=== PATIENT | female | born 1970 | race African-American/Black ===

== ENCOUNTER 2019-10-31 18:44 | Emergency (ER) | payer SELFPAY ==
[~2019-10-31] VITALS: Ht 175.3 cm; Wt 100.0 kg
[2019-10-31 19:03] VITALS: BP 167/87
== END 2019-10-31 20:03 | disposition left against medical advice (07) ==
LOC: ER 18:44
DX: R10.0 Acute abdomen (principal); R11.0 Nausea; R03.0 Elevated blood-pressure reading, without diagnosis of hypertension
CPT/HCPCS: 99281

== ENCOUNTER 2022-06-07 09:08 | Inpatient (IN) | payer MEDICAID ==
[~2022-06-07] VITALS: Ht 175.3 cm; Wt 93.4 kg
[2022-06-07] MEDS ORDERED: MORPHINE SULFATE 4 MG/ML CPJ (NOT FOR IM USE) IV STA (09:27)
[2022-06-07 10:55] LABS: BASOPHILS % 1.9 % (0.0-2.0); EOSINOPHILS % 1.4 % (0.0-5.0); HEMATOCRIT. 22.4 % (36.0-48.0); LYMPHOCYTES % 15.4 % (20.0-50.0); MEAN CORPUSCULAR VOLUME 56.9 fL (81.0-99.0); MEAN PLATELET VOLUME 8.5 fl (7.4-10.4); MONOCYTES % 5.7 % (2.0-8.0); NEUTROPHILS % 75.6 % (40.0-76.0); PLATELET 383 x1000/uL (130-400); RED BLOOD CELL COUNT 3.93 mill/uL (4.2-5.4); RED CELL DISTRIBUTION WIDTH 23.2 % (11.6-14.6)
[2022-06-07 11:00] LABS: CLARITY URINE CLEAR (CLEAR); COLOR URINE YELLOW (YELLOW); KETONES URINE NEGATIVE (NEGATIVE); LEUKOCYTE ESTERASE URINE NEGATIVE (NEGATIVE); NITRITE URINE NEGATIVE (NEGATIVE); OCCULT BLOOD URINE NEGATIVE (NEGATIVE); PROTEIN URINE NEGATIVE (NEGATIVE); SPECIFIC GRAVITY URINE 1.011 (1.005-1.030); UROBILINOGEN URINE 0.2 E.U./dL (0.2-1.0)
[2022-06-07 11:05] LABS: CHLORIDE 107 mEq/L (98-107)
[2022-06-07 11:16] LABS: INR 1.1; PROTHROMBIN TIME 11.3 sec (9.6-11.0)
[2022-06-07 11:19] LABS: HEMOGLOBIN. 6.3 g/dL (12.0-16.0)
[2022-06-07 11:53] LABS: PLATELET ESTIMATE NORMAL
[2022-06-07] MEDS ORDERED: KETOROLAC 15MG/ML VIAL IV PRN (13:30)
[2022-06-07] MEDS ORDERED: CLONIDINE 0.1MG TABLET PO PRN (13:45)
[2022-06-07] MEDS ORDERED: GUAIFENESIN 200MG/10ML SUGAR FREE UDC PO PRN (13:45)
[2022-06-07] MEDS ORDERED: ACETAMINOPHEN 325MG TABLET PO PRN ×2 (13:45)
[2022-06-07] MEDS ORDERED: NITROGLYCERIN 0.4MG TABLET SL SL PRN (13:45)
[2022-06-07] MEDS ORDERED: DOCUSATE SODIUM 100MG CAPSULE PO PRN (13:45)
[2022-06-07] MEDS ORDERED: MAGNESIUM/ALUMINUM HYDROXIDE/SIMETHICONE 30ML UDC PO PRN (13:45)
[2022-06-07] MEDS ORDERED: NA PHOS,M-B/NA PHOS,DI-BA ENEMA 118ML PR PRN (13:45)
[2022-06-07] MEDS ORDERED: ONDANSETRON HCL 4MG/2ML INJ IV PRN (13:45)
[2022-06-07] MEDS ORDERED: IPRATROPIUM/ALBUTEROL 0.5-3(2.5)MG/3ML NEB NEB PRN (13:45)
[2022-06-07 14:46] LABS: ETHANOL BLOOD < 10 mg/dL; HDL CHOLESTEROL 51 mg/dL (40-59); LDL CHOLESTEROL 64 mg/dL (5-100)
[2022-06-07 15:02] LABS: VITAMIN B12 SERUM 600 pg/mL (211-911)
[2022-06-07 16:53] LABS: T4 FREE 1.31 ng/dL (0.76-1.46); TOTAL IRON BINDING CAPACITY 384 ug/dL (250-450)
[2022-06-07] MEDS ORDERED: ZOLPIDEM TARTRATE 5MG TABLET PO PRN (21:00)
[2022-06-07] MEDS: FAMOTIDINE 20MG TABLET PO SCH (21:20)
[2022-06-07 23:16] VITALS: BP 158/83
[2022-06-08] VITALS: BP 158/83
[2022-06-08 00:42] LABS: HEMATOCRIT 23.9 % (36.0-48.0)
[2022-06-08 04:00] VITALS: BP 137/83
[2022-06-08 07:01] LABS: BASOPHILS % 1.3 % (0.0-2.0); EOSINOPHILS % 1.9 % (0.0-5.0); HEMATOCRIT. 25.9 % (36.0-48.0); HEMOGLOBIN. 7.4 g/dL (12.0-16.0); LYMPHOCYTES % 27.6 % (20.0-50.0); MEAN CORPUSCULAR HEMOGLOBIN 17.3 pg (28.0-32.0); MEAN CORPUSCULAR VOLUME 60.7 fL (81.0-99.0); MEAN PLATELET VOLUME 8.6 fl (7.4-10.4); MONOCYTES % 8.4 % (2.0-8.0); NEUTROPHILS % 60.8 % (40.0-76.0); PLATELET 411 x1000/uL (130-400); RED BLOOD CELL COUNT 4.26 mill/uL (4.2-5.4)
[2022-06-08 07:50] LABS: CHLORIDE 107 mEq/L (98-107)
[2022-06-08 08:00] VITALS: BP 145/87
[2022-06-08] MEDS: FAMOTIDINE 20MG TABLET PO SCH ×2 (09:09→20:49)
[2022-06-08] MEDS ORDERED: INFLUENZA VACCINE 05/PF 0.5 ML SYRINGE IM ONE (10:00)
[2022-06-08] MEDS: IRON SUCROSE COMPLEX 100 MG/5 ML ML IV SCH (11:34)
[2022-06-08 12:00] VITALS: BP 154/89
[2022-06-08 16:00] VITALS: BP 148/87
[2022-06-08 20:00] VITALS: BP 145/91
[2022-06-09] VITALS: BP 144/72
[2022-06-09 04:00] VITALS: BP 144/74
[2022-06-09 07:41] LABS: BASOPHILS % 1.9 % (0.0-2.0); EOSINOPHILS % 5.5 % (0.0-5.0); HEMATOCRIT. 26.6 % (36.0-48.0); HEMOGLOBIN. 7.7 g/dL (12.0-16.0); LYMPHOCYTES % 33.5 % (20.0-50.0); MEAN CORPUSCULAR HEMOGLOBIN 17.5 pg (28.0-32.0); MEAN PLATELET VOLUME 8.6 fl (7.4-10.4); MONOCYTES % 8.8 % (2.0-8.0); NEUTROPHILS % 50.3 % (40.0-76.0); PLATELET 463 x1000/uL (130-400); RED BLOOD CELL COUNT 4.42 mill/uL (4.2-5.4); RED CELL DISTRIBUTION WIDTH 25.5 % (11.6-14.6)
[2022-06-09 08:00] VITALS: BP 145/92
[2022-06-09] MEDS ORDERED: FERR325T6 MT (09:33)
[2022-06-09] MEDS ORDERED: SENN-257 MT (09:33)
[2022-06-09] MEDS: FAMOTIDINE 20MG TABLET PO SCH (09:51)
[2022-06-09] MEDS: IRON SUCROSE COMPLEX 100 MG/5 ML ML IV SCH (11:33)
[2022-06-09 11:52] VITALS: BP 145/92
[2022-06-09 12:00] VITALS: BP 145/76
== END 2022-06-09 14:30 | disposition home or self-care (01) | DRG 663 ==
LOC: ER 09:08 → MICUSO 12:52 → EDBEDREQTM 12:57 → EDBEDREQ 12:57 → 7WST 06-08 00:09
PROVIDERS: ADMIT Internal Medicine; ATTEND Internal Medicine
PROC: 30233N1 Transfusion of Nonautologous Red Blood Cells into Peripheral Vein, Percutaneous Approach (ICD-10-PCS; principal; 2022-06-07)
DX: D64.9 Anemia, unspecified (principal); E44.1 Mild protein-calorie malnutrition; E83.51 Hypocalcemia; E87.1 Hypo-osmolality and hyponatremia; D25.9 Leiomyoma of uterus, unspecified; E87.6 Hypokalemia; Z68.30 Body mass index [BMI] 30.0-30.9, adult; K42.9 Umbilical hernia without obstruction or gangrene
CPT/HCPCS: 36415; 74176; 80053; 80061; 80320; 81003; 82607; 82746; 83036; 83540; 83550; 83735; 84100; 84439; 84443; 85014; 85018; 85025; 86850; 86900; 86920; 90686; 93970; 99285; J1885; J2270; P9016; G0480

== ENCOUNTER 2023-11-19 19:08 | Inpatient (IN) | payer SELFPAY ==
[~2023-11-19] VITALS: Ht 167.6 cm; Wt 79.8 kg
[~2023-11-19 19:08] MED LIST: FERR325T6 MT; SENN-257 MT
[2023-11-19] MEDS ORDERED: ONDANSETRON HCL 4MG/2ML INJ IV STA (19:21)
[2023-11-19] MEDS: SODIUM CHLORIDE 0.9% 1,000 ML IV ONE (21:00)
[2023-11-19] MEDS: ONDANSETRON HCL 4MG/2ML INJ IV NR (21:23)
[2023-11-19 22:54] LABS: BASOPHILS % 0.3 % (0.0-2.0); EOSINOPHILS % 0.1 % (0.0-5.0); HEMATOCRIT. 38.9 % (36.0-48.0); HEMOGLOBIN. 12.7 g/dL (12.0-16.0); LYMPHOCYTES % 13.1 % (20.0-50.0); MEAN CORPUSCULAR HEMOGLOBIN 26.9 pg (28.0-32.0); MEAN CORPUSCULAR HGB CONC 32.6 g/dL (31.0-37.0); MEAN CORPUSCULAR VOLUME 82.4 fL (81.0-99.0); MEAN PLATELET VOLUME 7.5 fl (7.4-10.4); NEUTROPHILS % 80.5 % (40.0-76.0); PLATELET 252 x1000/uL (130-400); RED BLOOD CELL COUNT 4.71 mill/uL (4.2-5.4); RED CELL DISTRIBUTION WIDTH 18.3 % (11.6-14.6); WHITE BLOOD COUNT 9.1 x1000/uL (4.5-11.0)
[2023-11-19] MEDS: MORPHINE SULFATE 4 MG/ML INJ (FOR IV/IM USE) IV STA (23:00)
[2023-11-19 23:38] LABS: CHLORIDE 108 mEq/L (98-107); POTASSIUM 3.5 mEq/L (3.5-5.1); SODIUM 140 mEq/L (136-145)
[2023-11-19 23:39] LABS: CARBON DIOXIDE 27 mEq/L (21-32)
[2023-11-19 23:44] LABS: CREATININE 0.7 mg/dL (0.6-1.0); GLUCOSE 114 mg/dL (70-105)
[2023-11-19 23:45] LABS: UREA NITROGEN BLOOD 11 mg/dL (9-23)
[2023-11-19 23:46] LABS: ALANINE AMINOTRANSFERASE 16 IU/L (10-49); ALBUMIN 3.6 g/dL (3.2-4.8); ASPARTATE AMINOTRANSFERASE 29 IU/L (<34)
[2023-11-19 23:47] LABS: BILIRUBIN DIRECT < 0.1 mg/dL (<=3.0); BILIRUBIN TOTAL 0.3 mg/dL (0.1-1.0); PROTEIN TOTAL 7.7 g/dL (6.0-8.3)
[2023-11-20 03:31] VITALS: BP 141/96; PULSE 71; RESP 19; TEMP 96.9
[2023-11-20 04:00] VITALS: BP 141/71; PULSE 71; RESP 19; TEMP 96.9
[2023-11-20] MEDS ORDERED: HYDROCODONE/ACETAMINOPHEN 5/325MG TABLET PO PRN (04:30)
[2023-11-20] MEDS ORDERED: NALOXONE HCL 0.4MG/ML VIAL IV PRN (04:45)
[2023-11-20 08:00] VITALS: BP 166/91; PULSE 65; RESP 18; TEMP 97.5
[2023-11-20] MEDS ORDERED: ACETAMINOPHEN 325MG TABLET PO PRN (09:30)
[2023-11-20] MEDS ORDERED: DIPHENHYDRAMINE 50MG/ML VIAL IV PRN (09:30)
[2023-11-20] MEDS ORDERED: ONDANSETRON HCL 4MG/2ML INJ IV PRN (09:30)
[2023-11-20] MEDS ORDERED: IPRATROPIUM/ALBUTEROL 0.5-3(2.5)MG/3ML NEB HHN PRN (09:30)
[2023-11-20] MEDS ORDERED: CLONIDINE 0.1MG TABLET PO PRN (10:00)
[2023-11-20 10:37] LABS: HEMATOCRIT 36.8 % (36.0-48.0); MEAN CORPUSCULAR HEMOGLOBIN 26.7 pg (28.0-32.0); MEAN CORPUSCULAR HGB CONC 32.6 g/dL (31.0-37.0); MEAN CORPUSCULAR VOLUME 81.8 fL (81.0-99.0); PLATELET 286 x1000/uL (130-400); RED CELL DISTRIBUTION WIDTH 16.8 % (11.6-14.6); WHITE BLOOD COUNT 5.7 x1000/uL (4.5-11.0)
[2023-11-20 11:08] LABS: CHLORIDE 106 mEq/L (98-107); POTASSIUM 3.4 mEq/L (3.5-5.1); SODIUM 140 mEq/L (136-145)
[2023-11-20 11:09] LABS: CALCIUM 9.6 mg/dL (8.7-10.4); CARBON DIOXIDE 27 mEq/L (21-32)
[2023-11-20 11:14] LABS: CREATININE 0.8 mg/dL (0.6-1.0); GLUCOSE 122 mg/dL (70-105); UREA NITROGEN BLOOD 10 mg/dL (9-23)
[2023-11-20 11:16] LABS: ALANINE AMINOTRANSFERASE 15 IU/L (10-49); ALBUMIN 3.6 g/dL (3.2-4.8); ASPARTATE AMINOTRANSFERASE 27 IU/L (<34); BILIRUBIN TOTAL 0.5 mg/dL (0.1-1.0); PROTEIN TOTAL 7.6 g/dL (6.0-8.3)
[2023-11-20 12:00] VITALS: BP 148/88; PULSE 81; RESP 18; TEMP 97.6
[2023-11-20 16:00] VITALS: BP 155/88; PULSE 72; RESP 18; TEMP 98.7
[2023-11-20 20:00] VITALS: BP 142/86; PULSE 71; RESP 18; TEMP 98.1
[2023-11-21 07:34] LABS: BASOPHILS % 0.4 % (0.0-2.0); EOSINOPHILS % 2.4 % (0.0-5.0); HEMATOCRIT. 35.1 % (36.0-48.0); HEMOGLOBIN. 11.3 g/dL (12.0-16.0); LYMPHOCYTES % 38.5 % (20.0-50.0); MEAN CORPUSCULAR HEMOGLOBIN 26.4 pg (28.0-32.0); MEAN CORPUSCULAR HGB CONC 32.3 g/dL (31.0-37.0); MEAN CORPUSCULAR VOLUME 81.7 fL (81.0-99.0); MEAN PLATELET VOLUME 7.7 fl (7.4-10.4); MONOCYTES % 13.3 % (2.0-8.0); NEUTROPHILS % 45.4 % (40.0-76.0); PLATELET 286 x1000/uL (130-400); RED CELL DISTRIBUTION WIDTH 16.8 % (11.6-14.6); WHITE BLOOD COUNT 4.8 x1000/uL (4.5-11.0)
[2023-11-21 07:40] LABS: CALCIUM 9.3 mg/dL (8.7-10.4); CHLORIDE 105 mEq/L (98-107); POTASSIUM 3.6 mEq/L (3.5-5.1); SODIUM 139 mEq/L (136-145)
[2023-11-21 07:41] LABS: CARBON DIOXIDE 28 mEq/L (21-32)
[2023-11-21 07:47] LABS: CREATININE 0.7 mg/dL (0.6-1.0); GLUCOSE 88 mg/dL (70-105); UREA NITROGEN BLOOD 8 mg/dL (9-23)
[2023-11-21 08:00] VITALS: BP 167/87; PULSE 74; RESP 20; TEMP 97.5
[2023-11-21 12:00] VITALS: BP 160/84; PULSE 69; RESP 19; TEMP 97.6
[2023-11-21 16:00] VITALS: BP 167/88; PULSE 64; RESP 20; TEMP 96.7
[2023-11-21] MEDS: AMLODIPINE 5MG TABLET PO SCH (16:04)
[2023-11-21 20:00] VITALS: BP 151/86; PULSE 71; RESP 20; TEMP 98.4
[2023-11-22] VITALS: BP 151/88; PULSE 65; RESP 20; TEMP 98.1
[2023-11-22 04:00] VITALS: BP 152/84; PULSE 63; RESP 20; TEMP 97.7
[2023-11-22 08:00] VITALS: BP 158/92; PULSE 66; RESP 20; TEMP 97.8
[2023-11-22] MEDS ORDERED: AMLO5TAB88 PO (12:27)
[2023-11-22 14:19] VITALS: BP 158/92; PULSE 66; TEMP 97.8; O2SAT 100
== END 2023-11-22 15:00 | disposition home or self-care (01) | DRG 254 ==
LOC: ER 19:08 → 6EST 11-20 00:54 → EDBEDREQTM 11-20 01:20 → EDBEDREQDT 11-20 01:20 → EDBEDREQ 11-20 01:20 → EDBEDREQSVC 11-20 01:20
PROVIDERS: ADMIT Internal Medicine; ATTEND Internal Medicine
DX: K42.0 Umbilical hernia with obstruction, without gangrene (principal); D25.9 Leiomyoma of uterus, unspecified; I10 Essential (primary) hypertension; I16.0 Hypertensive urgency
CPT/HCPCS: 36415; 74018; 74176; 80048; 80053; 80076; 82962; 85025; 85027; 93970; 99285; J2270; J2405; J7030

== ENCOUNTER 2023-12-20 10:17 | Inpatient (IN) | payer SELFPAY ==
[~2023-12-20] VITALS: Ht 393.7 cm; Wt 95.3 kg
[~2023-12-20 10:17] MED LIST changes: +AMLO5TAB88 PO; -FERR325T6 MT; -SENN-257 MT
[2023-12-20 10:54] LABS: BASOPHILS % 0.5 % (0.0-2.0); EOSINOPHILS % 0.1 % (0.0-5.0); HEMATOCRIT. 44.2 % (36.0-48.0); HEMOGLOBIN. 14.2 g/dL (12.0-16.0); MEAN CORPUSCULAR HEMOGLOBIN 26.1 pg (28.0-32.0); MEAN CORPUSCULAR HGB CONC 32.1 g/dL (31.0-37.0); MEAN CORPUSCULAR VOLUME 81.2 fL (81.0-99.0); MEAN PLATELET VOLUME 7.5 fl (7.4-10.4); MONOCYTES % 5.5 % (2.0-8.0); NEUTROPHILS % 77.9 % (40.0-76.0); PLATELET 327 x1000/uL (130-400); RED BLOOD CELL COUNT 5.44 mill/uL (4.2-5.4); RED CELL DISTRIBUTION WIDTH 16.7 % (11.6-14.6); WHITE BLOOD COUNT 6.8 x1000/uL (4.5-11.0)
[2023-12-20 11:03] LABS: CARBON DIOXIDE 26 mEq/L (21-32); CHLORIDE 103 mEq/L (98-107); POTASSIUM 3.7 mEq/L (3.5-5.1); SODIUM 136 mEq/L (136-145)
[2023-12-20 11:04] LABS: CALCIUM 9.4 mg/dL (8.7-10.4)
[2023-12-20 11:05] LABS: PROTHROMBIN TIME 11.4 sec (9.6-11.0)
[2023-12-20 11:08] LABS: CREATININE 0.8 mg/dL (0.6-1.0)
[2023-12-20 11:09] LABS: GLUCOSE 124 mg/dL (70-105); UREA NITROGEN BLOOD 13 mg/dL (9-23)
[2023-12-20] MEDS: ONDANSETRON HCL 4MG/2ML INJ IV STA (11:53)
[2023-12-20] MEDS: MORPHINE SULFATE 4 MG/ML INJ (FOR IV/IM USE) IV STA (11:54)
[2023-12-20] MEDS ORDERED: IOHEXOL-300 100 ML BOTTLE ONE (15:21)
[2023-12-20] MEDS: AMLODIPINE 5MG TABLET PO NR (16:15)
[2023-12-20] MEDS ORDERED: DOCUSATE SODIUM 100MG CAPSULE PO PRN (16:45)
[2023-12-20] MEDS ORDERED: CLONIDINE 0.1MG TABLET PO PRN (16:45)
[2023-12-20] MEDS ORDERED: ONDANSETRON HCL 4MG/2ML INJ IV PRN (16:45)
[2023-12-20] MEDS ORDERED: HYDROMORPHONE HCL/PF 2MG/ML CPJ IV PRN (16:45)
[2023-12-20] MEDS ORDERED: ACETAMINOPHEN 325MG TABLET PO PRN (16:45)
[2023-12-20] MEDS ORDERED: GUAIFENESIN 200MG/10ML SUGAR FREE UDC PO PRN (16:45)
[2023-12-20] MEDS: PANTOPRAZOLE SODIUM 40 MG/VIAL IV SCH (16:55)
[2023-12-20] MEDS: HYDROCODONE/ACETAMINOPHEN 5/325MG TABLET PO PRN (18:25)
[2023-12-20] MEDS: ENOXAPARIN 40MG/0.4ML SYR SUBCUT SCH (18:26)
[2023-12-20] MEDS: DEXT 5%/0.45% NACL 1000ML 1,000 ML IV SCH (18:26)
[2023-12-20 18:38] VITALS: BP 135/91; PULSE 78; RESP 18; TEMP 98.1
[2023-12-20 20:00] VITALS: BP 129/77; PULSE 69; RESP 17; TEMP 98.7
[2023-12-20] MEDS: HYDRALAZINE HCL 50MG TABLET PO SCH (22:30)
[2023-12-21] VITALS (7 sets, daily range): BP systolic 106–135; BP diastolic 55–91; PULSE 64–87; RESP 18–19; TEMP 97–98.2; O2SAT 100
[2023-12-21 06:35] LABS: BASOPHILS % 0.6 % (0.0-2.0); EOSINOPHILS % 1.4 % (0.0-5.0); HEMATOCRIT. 42.1 % (36.0-48.0); HEMOGLOBIN. 13.5 g/dL (12.0-16.0); LYMPHOCYTES % 38.3 % (20.0-50.0); MEAN CORPUSCULAR HEMOGLOBIN 26.2 pg (28.0-32.0); MEAN CORPUSCULAR VOLUME 81.8 fL (81.0-99.0); MEAN PLATELET VOLUME 7.8 fl (7.4-10.4); MONOCYTES % 9.5 % (2.0-8.0); NEUTROPHILS % 50.2 % (40.0-76.0); PLATELET 312 x1000/uL (130-400); RED BLOOD CELL COUNT 5.15 mill/uL (4.2-5.4); RED CELL DISTRIBUTION WIDTH 16.8 % (11.6-14.6); WHITE BLOOD COUNT 4.9 x1000/uL (4.5-11.0)
[2023-12-21] MEDS: AMLODIPINE 10MG TABLET PO SCH (09:11)
[2023-12-22] MEDS ORDERED: FAMOTIDINE 20MG/2ML VIAL IV SCH (09:00)
== END 2023-12-21 17:15 | disposition home or self-care (01) | DRG 254 ==
LOC: ER 10:17 → 6EST 13:48 → EDBEDREQTM 13:52 → EDBEDREQ 13:52
PROVIDERS: ADMIT Hospitalist; ATTEND Hospitalist
DX: K43.6 Other and unspecified ventral hernia with obstruction, without gangrene (principal); I10 Essential (primary) hypertension; Z79.899 Other long term (current) drug therapy
CPT/HCPCS: 36415; 74177; 80048; 80061; 83605; 85025; 99285; C9113; J1650; J2270; J2405; Q9967

== ENCOUNTER 2024-01-27 18:28 | Inpatient (IN) | payer SELFPAY ==
[~2024-01-27] VITALS: Ht 175.3 cm; Wt 93.6 kg
[2024-01-27 20:31] LABS: CALCIUM 9.6 mg/dL (8.7-10.4); CARBON DIOXIDE 25 mEq/L (21-32); CHLORIDE 108 mEq/L (98-107); POTASSIUM 3.7 mEq/L (3.5-5.1); SODIUM 139 mEq/L (136-145)
[2024-01-27] MEDS: SODIUM CHLORIDE 0.9% 1,000 ML IV ONE (20:33)
[2024-01-27 20:36] LABS: CREATININE 0.7 mg/dL (0.6-1.0); GLUCOSE 118 mg/dL (70-105)
[2024-01-27 20:37] LABS: TROPONIN I HIGH SENSITIVITY < 4 ng/L (3.0-34); UREA NITROGEN BLOOD 6 mg/dL (9-23)
[2024-01-27 20:38] LABS: ALANINE AMINOTRANSFERASE 12 IU/L (10-49); ALBUMIN 4.3 g/dL (3.2-4.8); ASPARTATE AMINOTRANSFERASE 26 IU/L (<34)
[2024-01-27 20:39] LABS: BILIRUBIN TOTAL 0.4 mg/dL (0.1-1.0); PROTEIN TOTAL 8.6 g/dL (6.0-8.3)
[2024-01-27 20:40] LABS: BASOPHILS % 0.4 % (0.0-2.0); EOSINOPHILS % 0.1 % (0.0-5.0); HEMATOCRIT. 42.7 % (36.0-48.0); HEMOGLOBIN. 13.4 g/dL (12.0-16.0); LYMPHOCYTES % 18.7 % (20.0-50.0); MEAN CORPUSCULAR HEMOGLOBIN 26.4 pg (28.0-32.0); MEAN CORPUSCULAR HGB CONC 31.3 g/dL (31.0-37.0); MEAN CORPUSCULAR VOLUME 84.4 fL (81.0-99.0); MEAN PLATELET VOLUME 8.2 fl (7.4-10.4); MONOCYTES % 4.9 % (2.0-8.0); NEUTROPHILS % 75.9 % (40.0-76.0); PLATELET 176 x1000/uL (130-400); RED BLOOD CELL COUNT 5.06 mill/uL (4.2-5.4); RED CELL DISTRIBUTION WIDTH 17.5 % (11.6-14.6); WHITE BLOOD COUNT 5.8 x1000/uL (4.5-11.0)
[2024-01-27 20:47] LABS: HCG SCREEN NEGATIVE
[2024-01-27] MEDS: ONDANSETRON HCL 4MG/2ML INJ IV STA (20:53)
[2024-01-27] MEDS: MORPHINE SULFATE 4 MG/ML INJ (FOR IV/IM USE) IV STA (20:54)
[2024-01-27] MEDS: IOHEXOL-300 100 ML BOTTLE ONE (23:31)
[2024-01-28] MEDS: HYDRALAZINE 20MG/ML VIAL IV ONE (00:23)
[2024-01-28] MEDS: CLONIDINE 0.1MG TABLET PO NR (04:53)
[2024-01-28] MEDS ORDERED: ONDANSETRON HCL 4MG/2ML INJ IV PRN (08:15)
[2024-01-28] MEDS ORDERED: ACETAMINOPHEN 325MG TABLET PO PRN (08:15)
[2024-01-28 08:30] VITALS: BP 142/84; PULSE 56; RESP 16; TEMP 98.5
[2024-01-28] MEDS ORDERED: HYDRALAZINE 10 MG in SODIUM CHLORIDE 0.9% 49.5 ML IV PRN (09:00)
[2024-01-28] MEDS: PANTOPRAZOLE SODIUM 40 MG/VIAL IV SCH (10:20)
[2024-01-28] MEDS: ENOXAPARIN 40MG/0.4ML SYR SUBCUT SCH (10:20)
[2024-01-28] MEDS: AMLODIPINE 5MG TABLET PO SCH (10:21)
[2024-01-28] MEDS: DEXT 5%/0.45% NACL 1000ML 1,000 ML IV SCH (10:21)
[2024-01-28 12:00] VITALS: BP 162/90; PULSE 60; RESP 18; TEMP 97.8
[2024-01-28 12:04] LABS: TRIGLYCERIDE 42 mg/dL (0-150)
[2024-01-28 12:05] LABS: LDL CHOLESTEROL 109 mg/dL (5-100)
[2024-01-28 12:06] LABS: CHOLESTEROL 169 mg/dL (<200); HDL CHOLESTEROL 55 mg/dL (>65); LACTATE DEHYDROGENASE 269 IU/L (120-246)
[2024-01-28 12:08] LABS: T4 FREE 1.26 ng/dL (0.89-1.76); THYROID STIMULATING HORMONE < 0.10 uIU/mL (0.55-4.78)
[2024-01-28 16:00] VITALS: BP 120/100; PULSE 65; RESP 18; TEMP 97.5
[2024-01-28 20:00] VITALS: BP 152/98; PULSE 68; RESP 19; TEMP 97.6
[2024-01-28] MEDS: SIMETHICONE 80MG TABLET CHEW PO PRN (20:07)
[2024-01-29] VITALS: BP 134/82; PULSE 63; RESP 15; TEMP 97.8
[2024-01-29 02:56] LABS: CLARITY URINE CLEAR (CLEAR); COLOR URINE YELLOW (YELLOW); GLUCOSE URINE NEGATIVE (NEGATIVE); KETONES URINE NEGATIVE (NEGATIVE); LEUKOCYTE ESTERASE URINE NEGATIVE (NEGATIVE); NITRITE URINE NEGATIVE (NEGATIVE); OCCULT BLOOD URINE NEGATIVE (NEGATIVE); PROTEIN URINE TRACE (NEGATIVE); SPECIFIC GRAVITY URINE 1.012 (1.005-1.030)
[2024-01-29 03:03] LABS: *AMPHETAMINES SCREEN URINE NEGATIVE (NEGATIVE); *BARBITURATES SCREEN URINE NEGATIVE (NEGATIVE); *BENZODIAZEPINES SCREEN URINE NEGATIVE (NEGATIVE); *COCAINE SCREEN URINE NEGATIVE (NEGATIVE); CANNABINOID URINE SCREEN NEGATIVE (NEGATIVE); ECSTASY MDMA SCREEN URINE NEGATIVE (NEGATIVE); METHADONE URINE SCREEN NEGATIVE (NEGATIVE); OPIATES URINE SCREEN NEGATIVE (NEGATIVE); PHENCYCLIDINE URINE SCREEN NEGATIVE (NEGATIVE)
[2024-01-29 04:00] VITALS: BP 158/93; PULSE 61; RESP 16; TEMP 97.5
[2024-01-29 04:52] LABS: SQUAMOUS EPITHELIAL CELL URINE FEW /lpf (RARE/1+)
[2024-01-29 04:54] LABS: RBC URINE 0-2 /hpf (0-2); WBC URINE 0-2 /hpf (0-2)
[2024-01-29 04:56] LABS: BACTERIA URINE NONE SEEN
[2024-01-29 08:00] VITALS: BP 146/85; PULSE 60; RESP 16; TEMP 97.9
[2024-01-29 08:22] LABS: CARBON DIOXIDE 28 mEq/L (21-32); CHLORIDE 106 mEq/L (98-107); POTASSIUM 3.1 mEq/L (3.5-5.1); SODIUM 139 mEq/L (136-145)
[2024-01-29 08:23] LABS: CALCIUM 9.1 mg/dL (8.7-10.4)
[2024-01-29 08:26] LABS: CREATININE 0.7 mg/dL (0.6-1.0)
[2024-01-29 08:28] LABS: GLUCOSE 99 mg/dL (70-105); UREA NITROGEN BLOOD 7 mg/dL (9-23)
[2024-01-29 08:30] LABS: BASOPHILS % 0.4 % (0.0-2.0); EOSINOPHILS % 2.3 % (0.0-5.0); HEMATOCRIT. 40.2 % (36.0-48.0); LYMPHOCYTES % 38.6 % (20.0-50.0); MEAN CORPUSCULAR HEMOGLOBIN 26.6 pg (28.0-32.0); MEAN CORPUSCULAR HGB CONC 32.3 g/dL (31.0-37.0); MEAN CORPUSCULAR VOLUME 82.3 fL (81.0-99.0); MEAN PLATELET VOLUME 8.2 fl (7.4-10.4); MONOCYTES % 10.7 % (2.0-8.0); PLATELET 262 x1000/uL (130-400); RED BLOOD CELL COUNT 4.88 mill/uL (4.2-5.4); RED CELL DISTRIBUTION WIDTH 17.2 % (11.6-14.6)
[2024-01-29] MEDS: AMLODIPINE 10MG TABLET PO SCH (09:46)
[2024-01-29] MEDS: CLONIDINE 0.1MG TABLET PO PRN (10:08)
[2024-01-29] MEDS: KETOROLAC 15MG/ML VIAL IV PRN (10:10)
[2024-01-29] MEDS ORDERED: HYDRALAZINE 20MG/ML VIAL IV PRN (11:15)
[2024-01-29 12:00] VITALS: BP 130/114; PULSE 76; RESP 17; TEMP 98.1
[2024-01-29] MEDS: POTASSIUM CHLORIDE 20MEQ TABLET SR PO NR (14:56)
[2024-01-29 16:00] VITALS: BP 130/84; PULSE 67; RESP 15; TEMP 98.2
[2024-01-29 19:28] VITALS: BP 126/90; PULSE 64; RESP 15; TEMP 98.1
[2024-01-29] MEDS: HYDRALAZINE HCL 25MG TABLET PO SCH (20:10)
[2024-01-30] VITALS: BP 138/90; PULSE 56; RESP 15; TEMP 98
[2024-01-30 04:07] VITALS: BP 144/90; PULSE 68; RESP 13; TEMP 98.1
[2024-01-30] MEDS: ACETAMINOPHEN 325MG TABLET PO PRN (04:12)
[2024-01-30 06:12] LABS: CHLORIDE 106 mEq/L (98-107); POTASSIUM 3.3 mEq/L (3.5-5.1); SODIUM 140 mEq/L (136-145)
[2024-01-30 06:13] LABS: CALCIUM 9.1 mg/dL (8.7-10.4); CARBON DIOXIDE 28 mEq/L (21-32)
[2024-01-30 06:17] LABS: PROTHROMBIN TIME 11.5 sec (9.6-11.0)
[2024-01-30 06:18] LABS: CREATININE 0.7 mg/dL (0.6-1.0); GLUCOSE 98 mg/dL (70-105); UREA NITROGEN BLOOD 7 mg/dL (9-23)
[2024-01-30 06:31] LABS: HEMOGLOBIN 13.3 g/dL (12.0-16.0); MEAN CORPUSCULAR HGB CONC 31.6 g/dL (31.0-37.0); MEAN CORPUSCULAR VOLUME 82.3 fL (81.0-99.0); PLATELET 255 x1000/uL (130-400); RED BLOOD CELL COUNT 5.11 mill/uL (4.2-5.4); RED CELL DISTRIBUTION WIDTH 16.9 % (11.6-14.6); WHITE BLOOD COUNT 3.3 x1000/uL (4.5-11.0)
[2024-01-30 08:00] VITALS: BP 158/94; PULSE 71; RESP 16; TEMP 97.7
[2024-01-30] MEDS: FAMOTIDINE 20MG/2ML VIAL IV SCH (09:31)
[2024-01-30] MEDS: ENOXAPARIN 30MG/0.3ML SYR SUBCUT SCH (09:31)
[2024-01-30 12:00] VITALS: BP 142/91; RESP 15; TEMP 98.1
[2024-01-30] MEDS: POTASSIUM CHLORIDE 20MEQ TABLET SR PO NR (14:18)
[2024-01-30] MEDS: LOSARTAN 25 MG TABLET PO SCH (14:18)
[2024-01-30] MEDS ORDERED: LOSA25TA26 PO (15:58)
[2024-01-30 16:00] VITALS: BP 162/80; PULSE 70; RESP 15; TEMP 98.1
[2024-01-30 20:12] VITALS: BP 138/78; PULSE 75; TEMP 98.1; O2SAT 98
== END 2024-01-30 21:06 | disposition home or self-care (01) | DRG 254 ==
LOC: ER 18:28 → 3WST 01-28 02:21
PROVIDERS: ADMIT Internal Medicine; ATTEND Internal Medicine
DX: K43.6 Other and unspecified ventral hernia with obstruction, without gangrene (principal); K76.89 Other specified diseases of liver; N13.30 Unspecified hydronephrosis; I10 Essential (primary) hypertension; I16.0 Hypertensive urgency; E87.6 Hypokalemia; E87.5 Hyperkalemia; N85.2 Hypertrophy of uterus; N28.1 Cyst of kidney, acquired; D25.9 Leiomyoma of uterus, unspecified; E05.90 Thyrotoxicosis, unspecified without thyrotoxic crisis or storm; G89.29 Other chronic pain; Z91.148 Patient's other noncompliance with medication regimen for other reason; Z90.710 Acquired absence of both cervix and uterus; Z59.7 Insufficient social insurance and welfare support; Z79.899 Other long term (current) drug therapy; Z82.49 Family history of ischemic heart disease and other diseases of the circulatory system
CPT/HCPCS: 36415; 71045; 74177; 80048; 80053; 80061; 80305; 81003; 82962; 83036; 83605; 83615; 84439; 84443; 84484; 84703; 85025; 85027; 93005; 97162; 99291; J0360; J1650; J1885; J2270; J2405; J2470; J3490; J7030; Q9967

== ENCOUNTER 2024-03-09 18:07 | Emergency (ER) | payer OTHER ==
[~2024-03-09] VITALS: Ht 165.1 cm; Wt 95.0 kg
[~2024-03-09 18:07] MED LIST changes: +LOSA25TA26 PO
[2024-03-09 18:14] VITALS: O2SAT 100
[2024-03-09] MEDS ORDERED: HYDROMORPHONE HCL/PF 2MG/ML INJ IV ONE ×2 (19:00→19:15)
[2024-03-09] MEDS: HYDROMORPHONE HCL/PF 1MG/ML INJ IV NR (19:49)
[2024-03-09 19:57] LABS: CHLORIDE 104 mEq/L (98-107); POTASSIUM 4.8 mEq/L (3.5-5.1); SODIUM 137 mEq/L (136-145)
[2024-03-09 19:58] LABS: CALCIUM 9.5 mg/dL (8.7-10.4); CARBON DIOXIDE 27 mEq/L (21-32)
[2024-03-09 20:03] LABS: CREATININE 0.8 mg/dL (0.6-1.0); GLUCOSE 123 mg/dL (70-105); UREA NITROGEN BLOOD 9 mg/dL (9-23)
[2024-03-09 20:05] LABS: ALANINE AMINOTRANSFERASE 14 IU/L (10-49); ALBUMIN 4.8 g/dL (3.2-4.8); ASPARTATE AMINOTRANSFERASE 35 IU/L (<34); BILIRUBIN TOTAL 0.6 mg/dL (0.1-1.0); PROTEIN TOTAL 9.4 g/dL (6.0-8.3)
[2024-03-09 20:45] LABS: BASOPHILS % 0.1 % (0.0-2.0); EOSINOPHILS % 0.1 % (0.0-5.0); HEMATOCRIT. 41.7 % (36.0-48.0); HEMOGLOBIN. 13.4 g/dL (12.0-16.0); LYMPHOCYTES % 13.3 % (20.0-50.0); MEAN CORPUSCULAR HEMOGLOBIN 26.9 pg (28.0-32.0); MEAN CORPUSCULAR HGB CONC 32.1 g/dL (31.0-37.0); MEAN CORPUSCULAR VOLUME 83.8 fL (81.0-99.0); MEAN PLATELET VOLUME 7.5 fl (7.4-10.4); MONOCYTES % 3.9 % (2.0-8.0); NEUTROPHILS % 82.6 % (40.0-76.0); PLATELET 230 x1000/uL (130-400); RED BLOOD CELL COUNT 4.98 mill/uL (4.2-5.4); RED CELL DISTRIBUTION WIDTH 17.4 % (11.6-14.6); WHITE BLOOD COUNT 5.9 x1000/uL (4.5-11.0)
[2024-03-09] MEDS: ONDANSETRON HCL 4MG/2ML INJ IV ONE (23:43)
[2024-03-09] MEDS: LABETALOL 5MG/ML 4ML INJ IV ONE (23:43)
[2024-03-09] MEDS: HYDROMORPHONE HCL/PF 2MG/ML INJ IV ONE (23:43)
[2024-03-10 00:24] VITALS: TEMP 36.78072
[2024-03-10 03:39] VITALS: BP 139/68; PULSE 92; RESP 18; O2SAT 100
== END 2024-03-10 03:39 | disposition admitted as inpatient to this hospital (09) ==
LOC: ER 18:07
DX: K43.9 Ventral hernia without obstruction or gangrene (principal); I10 Essential (primary) hypertension
CPT/HCPCS: 99285; 74176; 96374; 96375; 80053; 82962; 83605; 85025; 36415; 96376; J3490; J2405; J1170